=== PATIENT | female | born 1990 | race African-American/Black ===

== ENCOUNTER 2019-08-09 13:37 | Inpatient (IN) | payer OTHER ==
[~2019-08-09] VITALS: Ht 170.2 cm; Wt 97.5 kg
[2019-08-09] MEDS ORDERED: OMEP10CASR PO (13:46)
[2019-08-09] MEDS ORDERED: NS 2,800 ML in IV 1 EA IV ONE (14:15)
[2019-08-09] MEDS ORDERED: ACETAMINOPHEN TAB 650MG DOSE (2X325MG) PO ONE (15:00)
[2019-08-09 15:46] LABS: HEMOGLOBIN 13.6 g/dl (12.0-15.5); MEAN CORPUSCULAR HEMOGLOBIN 26.3 pg (27.0-33.0); MEAN CORPUSCULAR HGB CONC 31.6 g/dl (32.0-36.5); MEAN CORPUSCULAR VOLUME 83.2 fl (80.0-96.0); PLATELET COUNT, AUTOMATED 212 10^3/uL (150-450); RED BLOOD COUNT 5.17 10^6/uL (4.00-5.40); WHITE BLOOD COUNT 13.9 10^3/uL (4.0-10.0)
[2019-08-09 16:02] LABS: EOSINOPHILS 2 % (0-3); LYMPHOCYTES 10 % (16-44); MONOCYTES 4 % (0-5); NEUTROPHILS 80 % (28-66); PLATELET ESTIMATE NORMAL (NORMAL)
[2019-08-09 16:20] LABS: ALBUMIN 3.5 GM/DL (3.2-5.2); ALT/SGPT 676 U/L (12-78); BILIRUBIN,DIRECT 2.8 MG/DL (0.0-0.2); BILIRUBIN,TOTAL 3.7 MG/DL (0.2-1.0); CK-MB VALUE MASS < 1.0 NG/ML (<3.6); CPK CREATINE PHOSPHOKINASE 89 U/L (26-192); LIPASE 124 U/L (73-393); MB/CK RELATIVE INDEX 1.12 (< OR =4); TOTAL PROTEIN 7.5 GM/DL (6.4-8.2)
[2019-08-09] MEDS ORDERED: cefTRIAXone SOD 1 GM in D5W MINI-BAG PLUS 50 ML IV ONE (16:30)
--- NOTE | 2019-08-09 17:31 | REP ---
REASON FOR EXAM: Nausea, vomiting, abdominal pain. Multiple ultrasonographic images of the gallbladder show multiple echogenic foci within the gallbladder lumen which are mobile and cast acoustic shadows. The gallbladder wall is diffusely thickened measuring 5 mm, however, there is no evidence of pericholecystic edema. The common bile duct measures 5 mm in its greatest transverse dimension. Evaluation of the liver shows a few scattered periportal increased echoes. There is no mass or ductal dilatation. The right kidney and imaged portion of the pancreas are within normal limits. IMPRESSION: There is cholelithiasis and gallbladder wall thickening without onofre pericholecystic edema; however, there is a small amount of free fluid in Dockery's pouch. Scattered increased periportal echoes which have been known to be correlated with hepatitis, however, this needs to be correlated clinically with appropriate followup if necessary. Electronically Signed by Shawn Be DO 08/10/2019 09:21 A
[2019-08-09 18:25] LABS: MONO REFLEX EBV COMP NEGATIVE (NEGATIVE)
[2019-08-09] MEDS: NS 1,000 ML IV SCH (20:14)
[2019-08-09] MEDS ORDERED: IBUPROFEN 400 MG TAB PO ONE (20:15)
[2019-08-09] MEDS ORDERED: MULT1TAB16 PO (20:28)
[2019-08-09] MEDS ORDERED: OMEP1CAP73 PO (20:28)
[2019-08-09 21:10] VITALS: BP 121/70
--- NOTE | 2019-08-09 21:12 | HPEPDOC ---
[facility] Medical History & Physical Date of Admission Aug 09, 2019 Date of Service: Aug 09, 2019 Attending Physician: JUAN GRIGSBY MD History and Physical CHIEF COMPLAINT: Abdominal pain, nausea and dark urine HISTORY OF PRESENT ILLNESS: 28-year-old female with past medical history of GERD, presents with abdominal pain. Her symptoms started 1 day ago with associated nausea, change in urine color, and myalgias/arthralgias. She denies any other symptoms, denies recent travel, denies history of alcohol abuse or IV drug use. Her is in the , recently deployed to [place], returned 2 months ago, he has been asymptomatic and healthy since then. Of note, patient has not had a period since March 2019. She saw an DIRECTOR INTERNAL COMMUNICATIONS who told her that it was "normal", no workup has been done. She denies any shortness of breath, chest pain or diarrhea. 10 point review of system is negative except for above PAST MEDICAL HISTORY: 1. GERD. PAST SURGICAL HISTORY: 1. None. SOCIAL HISTORY: Denies smoking. Social alcohol use. Denies drug use FAMILY HISTORY: Negative for heart disease or malignancy ALLERGIES: Please see below. HOME MEDICATIONS: Please see below. PHYSICAL EXAMINATION: VITAL SIGNS: Please see below. GENERAL: No distress HEENT: Normocephalic, atraumatic, moist mucous membranes NECK: Supple CARDIOVASCULAR EXAMINATION: S1, S2, no murmurs RESPIRATORY EXAMINATION: Clear to auscultation, no wheezing ABDOMINAL EXAMINATION: Soft, mild right upper quadrant tenderness to palpation, nondistended, positive bowel sounds EXTREMITIES: Range of motion intact SKIN: No rash NEUROLOGICAL EXAMINATION: Alert and oriented 3, no focal deficits PSYCHIATRIC EXAMINATION: Calm and cooperative LABORATORY DATA: See below. IMAGING: Abdominal ultrasound concerning for hepatitis, showing cholelithiasis with thickening of the bladder wall, no other signs of cholecystitis. MICROBIOLOGY: Please see below. ASSESSMENT: 28-year-old female with past medical history of GERD is being admitted for hepatitis. PLAN: 1. Hepatitis. Appears viral, viral panel pending, IV hydration, will monitor and further workup based on clinical progression. 2. GERD. Continue omeprazole Vital Signs Vital Signs Date Time Temp Pulse Resp B/P (MAP) Pulse Ox O2 Delivery O2 Flow Rate FiO2 08/09/19 19:40 101.3 08/09/19 18:45 101 16 107/58 (74) 98 Room Air Laboratory Data Labs 24H Laboratory Tests 2 08/09/19 14:06: Neutrophils (%) (Auto) , Nucleated Red Blood Cells % (auto) 0.0, Neutrophils 80H, Band Neutrophils 4, Lymphocytes (Manual) 10L, Monocytes (Manual) 4, Eosinophils (Manual) 2, Red Blood Cell Morphology NORMAL, Platelet Estimate NORMAL, Lactic Acid Level 3.1*H, Total Bilirubin 3.7H, Direct Bilirubin 2.8H, Aspartate Amino Transf (AST/SGOT) 372H, Alanine Aminotransferase (ALT/SGPT) 676H, Alkaline Phosphatase 238H, Total Creatine Kinase 89, Creatine Kinase MB < 1.0, Creatine Kinase MB Relative Index 1.12, Total Protein 7.5, Albumin 3.5, Albumin/Globulin Ratio 0.9L, Lipase 124 08/09/19 14:36: POC Glucose (Misc Panel) 105, POC Sodium (Misc Panel) 133L, POC Potassium (Misc Panel) 4.4, POC Chloride (Misc Panel) 96L, POC Total CO2 (Misc Panel) 26.0, POC Blood Urea Nitrogen (Misc Panel 9, POC Ionized Calcium (Misc Panel) 4.3L, POC Creatinine (Misc Panel) 1.2, POC Hematocrit (Misc Panel) 44.0 08/09/19 14:38: POC Beta HCG, Quantitative < 5.0 08/09/19 14:43: Urine Color PHILLIP, Urine Appearance CLOUDYH, Urine pH 6.0, Urine Specific [place] 1.016, Urine Protein 1+H, Urine Glucose (UA) NEGATIVE, Urine Ketones 1+H, Urine Blood NEGATIVE, Urine Nitrite NEGATIVE, Urine Bilirubin 1+H, Urine Urobilinogen 4.0H, Urine Leukocyte Esterase 2+H, Urine WBC (Auto) 141H, Urine RBC (Auto) 7H, Urine Hyaline Casts (Auto) 0, Urine Bacteria (Auto) NEGATIVE, Urine Squamous Epithelial Cells 21, Urine Mucus (Auto) SMALL, Urine Sperm (Auto) 08/09/19 17:46: Lactic Acid Level 1.5, Monoscreen NEGATIVE CBC/BMP Laboratory Tests 08/09/19 14:06 Microbiology Microbiology 08/09/19 Urine Culture, Received Pending 08/09/19 Blood Culture, Received Pending 08/09/19 Blood Culture, Received Pending Home Medications Scheduled Omeprazole (Omeprazole) 10 Mg Capsule.dr, 20 MG PO BID Allergies Uncoded Allergies: an abx that starts with a d (Adverse Reaction, Intermediate, migraine, 08/09/19) A-FIB/CHADSVASC A-FIB History Current/History of A-Fib/PAF?: No JUAN GRIGSBY MD Aug 09, 2019 21:05
[2019-08-09] MEDS ORDERED: EPIP0.3I2 INJ (21:16)
[2019-08-09 22:00] VITALS: BP 118/68
[2019-08-09 22:43] LABS: INR 1.64; PROTHROMBIN TIME 19.2 SECONDS (11.8-14.0)
[2019-08-10] MEDS: NS 1,000 ML IV SCH ×2 (03:58→14:03)
[2019-08-10] MEDS: IBUPROFEN 200MG TAB PO PRN (04:15)
[2019-08-10 06:00] VITALS: BP 123/63
[2019-08-10 06:12] LABS: HEMATOCRIT 34.1 % (36.0-47.0); MEAN CORPUSCULAR HEMOGLOBIN 26.7 pg (27.0-33.0); MEAN CORPUSCULAR HGB CONC 32.8 g/dl (32.0-36.5); MEAN CORPUSCULAR VOLUME 81.4 fl (80.0-96.0); PLATELET COUNT, AUTOMATED 201 10^3/uL (150-450); RED BLOOD COUNT 4.19 10^6/uL (4.00-5.40); WHITE BLOOD COUNT 11.1 10^3/uL (4.0-10.0)
[2019-08-10 06:17] LABS: HEMOGLOBIN 11.2 g/dl (12.0-15.5)
[2019-08-10 06:39] LABS: ALBUMIN 2.6 GM/DL (3.2-5.2); ALT/SGPT 395 U/L (12-78); BILIRUBIN,TOTAL 2.8 MG/DL (0.2-1.0); BLOOD UREA NITROGEN 6 MG/DL (7-18); CALCIUM LEVEL 7.3 MG/DL (8.5-10.1); CARBON DIOXIDE LEVEL 24 MEQ/L (21-32); CHLORIDE LEVEL 107 MEQ/L (98-107); GLOMERULAR FILTRATION RATE > 60.0 (>60); GLUCOSE, FASTING 81 MG/DL (70-100); MAGNESIUM LEVEL 1.2 MG/DL (1.8-2.4); POTASSIUM SERUM 3.6 MEQ/L (3.5-5.1); SODIUM LEVEL 140 MEQ/L (136-145); TOTAL PROTEIN 5.8 GM/DL (6.4-8.2)
[2019-08-10] MEDS: MAG SULF 1GM/100ML (MAG RUN) 1 GM in IV 1 EA IV SCH ×4 (07:48→23:11)
[2019-08-10 09:27] LABS: HEPATITIS A ANTIBODY IGM NEGATIVE (NEGATIVE); HEPATITIS B CORE ANTIBODY IGM NEGATIVE (NEGATIVE); HEPATITIS B SURFACE ANTIGEN NEGATIVE (NEGATIVE); HEPATITIS C VIRUS ABY INDEX 0.3 INDEX (<0.8)
[2019-08-10] MEDS: CHOLESTYRAMINE 4 GM PWD PKT PO SCH ×2 (09:50→21:00)
--- NOTE | 2019-08-10 11:01 | IPNPDOC ---
Subjective Date Seen The patient was seen on 08/10/19. Subjective Chief Complaint/HPI Low-grade fever. Also complaining of itching all over the body and the yellowish discoloration of urine, but no nausea, vomiting or abdominal pain General: Denies: ROS Unobtainable, Chills, Night Sweats, Fatigue, Malaise, N ormal Appetite, Other Symptoms Constitutional: Reports: Fever Eyes: Denies: Pain, Vision change, Conjunctivae inflammation, Eyelid inflammation, Redness, Other ENT: Denies: Head Aches, Ear Pain, Dysphagia, Sinus Congestion, Post Nasal Drip, Sore Throat, Epistaxis, Other Symptoms Skin: Reports: Other (, itching all over the body); Denies: Rash, Lesions, Jaundice, Bruising, Itching, Dry, Breakdown, Nail Changes Pulmonary: Denies: Dyspnea, Cough, Pleuritic Chest Pain, Other Symptoms Cardiovascular: Denies: Chest Pain, Palpitations, Orthopnea, Paroxysmal Noc. Dyspnea, Edema, Lt Headedness, Other Symptoms Gastrointestinal: Denies: Nausea, Vomiting, Abdominal Pain, Diarrhea, Constipation, Melena, Hematochezia, Other Symptoms Genitourinary: Reports: Other Symptoms Hematologic: Denies: Bruising, Bleeding Excessively, Petecchia, Purpura, Enlarged Lymph Nodes, Other Hematologic Endocrine: Denies: Polydipsia, Polyphagia, Polyuria, Heat Intolerance, Cold Intolerance, Other Endocrine Sx Musculoskeletal: Denies: Neck Pain, Back Pain, Shoulder Pain, Arm Pain, Hand Pain, Leg Pain, Foot Pain, Joint Pain, Muscle Pain, Spasms, Other Symptoms Neurological: Denies: Weakness, Numbness, Incoordination, Change in speech, Confusion, Seizures, Other Symptoms Objective Physical Examination General Exam: Positive: Alert, Cooperative Eye Exam: Positive: PERRLA, Conjunctiva & lids normal ENT Exam: Positive: Atraumatic, Mucous membr. moist/pink Neck Exam: Positive: Supple Chest Exam: Positive: Clear to auscultation Heart Exam: Positive: Rate Normal, Normal S1 Abdomen Exam: Positive: Normal bowel sounds, Soft Skin Exam: Positive: Nl turgor and temperature Neuro Exam: Positive: Strength at 5/5 X4 ext, Sensation Intact, Cranial Nerves 3-12 NL Assessment /Plan Problems (1) Elevated liver enzymes Status: Acute Problem Text: Patient was admitted with elevated liver enzymes Total bilirubin 2.8, AST 168, ALT 395, and ALP 160, lipase of 124 Acute hepatitis profile for A, B, and C is negative so far Most likely viral in nature, could be CMV, Flaco-Matias virus, but mono test is negative Will continue IV fluids Monitor patient's liver enzymes and symptoms (2) UTI (urinary tract infection) Status: Acute Problem Text: Patient has been started on Rocephin Urine cultures are pending Will change antibiotics according to the cultures (3) Hypomagnesemia Status: Acute Problem Text: Magnesium sulfate 1 g IV piggyback 2 given . We will repeat a magnesium level in a.m. (4) Gall bladder stones Status: Acute Problem Text: Abdominal sono shows gallstones with gallbladder wall thickness, but no stone in the bile duct Will get a CT of abdomen and pelvis to rule out acute cholecystitis or cholangitis since hepatitis profile is negative Continue supportive care Plan/VTE VTE Prophylaxis Ordered?: Yes VS, I&O, 24H, Fishbone Vital Signs/I&O Vital Signs Date Time Temp Pulse Resp B/P (MAP) Pulse Ox O2 Delivery O2 Flow Rate FiO2 08/10/19 08:54 100.1 08/10/19 06:00 95 17 123/63 (83) 100 Room Air I&O- Last 24 Hours up to 6 AM 08/10/19 05:59 Intake Total 3545 ml Output Total 850 ml Balance 2695 ml Laboratory Data 24H LABS Laboratory Tests 2 08/09/19 14:06: Neutrophils (%) (Auto) , Nucleated Red Blood Cells % (auto) 0.0, Neutrophils 80H, Band Neutrophils 4, Lymphocytes (Manual) 10L, Monocytes (Manual) 4, Eosi nophils (Manual) 2, Red Blood Cell Morphology NORMAL, Platelet Estimate NORMAL, Lactic Acid Level 3.1*H, Total Bilirubin 3.7H, Direct Bilirubin 2.8H, Aspartate Amino Transf (AST/SGOT) 372H, Alanine Aminotransferase (ALT/SGPT) 676H, Alkaline Phosphatase 238H, Total Creatine Kinase 89, Creatine Kinase MB < 1.0, Creatine Kinase MB Relative Index 1.12, Total Protein 7.5, Albumin 3.5, Albumin/Globulin Ratio 0.9L, Lipase 124 08/09/19 14:36: POC Glucose (Misc Panel) 105, POC Sodium (Misc Panel) 133L, POC Potassium (Misc Panel) 4.4, POC Chloride (Misc Panel) 96L, POC Total CO2 (Misc Panel) 26.0, POC Blood Urea Nitrogen (Misc Panel 9, POC Ionized Calcium (Misc Panel) 4.3L, POC Cr eatinine (Misc Panel) 1.2, POC Hematocrit (Misc Panel) 44.0 08/09/19 14:38: POC Beta HCG, Quantitative < 5.0 08/09/19 14:43: Urine Color PHILLIP, Urine Appearance CLOUDYH, Urine pH 6.0, Urine Specific [place] 1.016, Urine Protein 1+H, Urine Glucose (UA) NEGATIVE, Urine Ketones 1+H, Urine Blood NEGATIVE, Urine Nitrite NEGATIVE, Urine Bilirubin 1+H, Urine Urobilinogen 4.0H, Urine Leukocyte Esterase 2+H, Urine WBC (Auto) 141H, Urine RBC (Auto) 7H, Urine Hyaline Casts (Auto) 0, Urine Bacteria (Auto) NEGATIVE, Urine Squamous Epithelial Cells 21, Urine Mucus (Auto) SMALL, Urine Sperm (Auto) 08/09/19 17:46: Lactic Acid Level 1.5, Hepatitis A IgM Antibody NEGATIVE, Hepatitis B Surface Antigen NEGATIVE, Hepatitis B Core IgM Antibody NEGATIVE, Hepatitis C Antibody Index 0.3, Monoscreen NEGATIVE 08/09/19 22:08: Prothrombin Time 19.2H, Prothromb Time International Ratio 1.64, Lactic Acid Followup at 4 Hours 1.6 08/10/19 05:25: Nucleated Red Blood Cells % (auto) 0.0, Anion Gap 9, Glomerular Filtration Rate > 60.0, Calcium Level 7.3L, Magnesium Level 1.2L, Total Bilirubin 2.8H, Aspartate Amino Transf (AST/SGOT) 168H, Alanine Aminotransferase (ALT/SGPT) 395H, Alkaline Phosphatase 160H, Total Protein 5.8#L, Albumin 2.6#L, Albumin/Globulin Ratio 0.8L CBC/BMP Laboratory Tests 08/09/19 14:06 08/10/19 05:25 Microbiology Microbiology 08/09/19 Urine Culture, Received Pending 08/09/19 Blood Culture, Received Pending 08/09/19 Blood Culture, Received Pending AMBROCIO RAMÍREZ MD Aug 10, 2019 11:01
[2019-08-10] MEDS ORDERED: ISOVUE-370 76% 100ML VIAL As Ordered ONE (13:00)
[2019-08-10 14:00] VITALS: BP 122/64
--- NOTE | 2019-08-10 14:42 | REP ---
REASON: Acute abdominal pain. No prior CTs for comparison. CONTRAST: 100 mL Isovue 370. The lung bases are clear. The liver is within normal limits. There are no enhancing lesions. There is no evidence of ductal dilatation. The gallbladder is within normal limits. The spleen, pancreas, adrenal glands, and right kidney are unremarkable. There are two focal areas of low density in the left renal cortex consistent with small simple cysts. The abdominal aorta and para-aortic regions are within normal limits. The intra-abdominal and intrapelvic bowel loops and their mesenteries are within normal limits. There is a moderate to large amount of stool seen in the ascending and transverse colon. No free fluid or free air is seen in the abdomen. There is a small amount of free pelvic fluid probably physiologic. There is no free air in the abdomen or pelvis. The abdominal aorta and para-aortic regions are within normal limits. Bone window technique throughout the examination shows the osseous structures to be within normal limits. IMPRESSION: 1. Small simple left renal cysts. 2. No CT evidence of an hepatic abnormality. 3. Small amount of free fluid in the pelvis, probably physiologic. 4. Colonic content as described above. Correlate clinically for constipation. 5. Other findings and limitations as described above. Electronically Signed by Shawn Be DO 08/10/2019 03:07 P
[2019-08-10] MEDS ORDERED: IBUPROFEN 600MG TAB PO ONE (15:15)
[2019-08-10] MEDS ORDERED: LevoFLOXacin IV 500 MG in IV 1 EA IV SCH (18:00)
[2019-08-10] MEDS ORDERED: POTASSIUM CHLORIDE 10 MEQ SR TABLET PO ONE (20:15)
[2019-08-10] MEDS ORDERED: ONDANSETRON 4 MG TAB PO PRN (20:15)
[2019-08-10 22:00] VITALS: BP 118/65
[2019-08-11] MEDS: MAG SULF 1GM/100ML (MAG RUN) 1 GM in IV 1 EA IV SCH ×2 (00:15→01:58)
[2019-08-11] MEDS: NS 1,000 ML IV SCH ×2 (01:57→04:15)
[2019-08-11 06:00] VITALS: BP 114/60
[2019-08-11 06:16] LABS: HEMATOCRIT 33.9 % (36.0-47.0); HEMOGLOBIN 10.9 g/dl (12.0-15.5); MEAN CORPUSCULAR HEMOGLOBIN 26.2 pg (27.0-33.0); MEAN CORPUSCULAR HGB CONC 32.2 g/dl (32.0-36.5); MEAN CORPUSCULAR VOLUME 81.5 fl (80.0-96.0); PLATELET COUNT, AUTOMATED 219 10^3/uL (150-450); RED BLOOD COUNT 4.16 10^6/uL (4.00-5.40); WHITE BLOOD COUNT 9.6 10^3/uL (4.0-10.0)
[2019-08-11 06:38] LABS: ALBUMIN 2.4 GM/DL (3.2-5.2); ALT/SGPT 315 U/L (12-78); BILIRUBIN,DIRECT 1.3 MG/DL (0.0-0.2); BILIRUBIN,TOTAL 1.7 MG/DL (0.2-1.0); BLOOD UREA NITROGEN 3 MG/DL (7-18); CALCIUM LEVEL 7.7 MG/DL (8.5-10.1); CARBON DIOXIDE LEVEL 25 MEQ/L (21-32); CHLORIDE LEVEL 110 MEQ/L (98-107); CREATININE FOR GFR 0.82 MG/DL (0.55-1.30); GLOMERULAR FILTRATION RATE > 60.0 (>60); GLUCOSE, FASTING 84 MG/DL (70-100); MAGNESIUM LEVEL 2.4 MG/DL (1.8-2.4); SODIUM LEVEL 141 MEQ/L (136-145)
[2019-08-11 07:27] LABS: ATYPICAL LYMPH 1 % (0-5); EOSINOPHILS 1 % (0-3); LYMPHOCYTES 14 % (16-44); MONOCYTES 4 % (0-5); NEUTROPHILS 70 % (28-66)
[2019-08-11 07:28] LABS: PLATELET ESTIMATE NORMAL (NORMAL)
[2019-08-11 07:29] LABS: ANISOCYTOSIS 1+
[2019-08-11] MEDS: CHOLESTYRAMINE 4 GM PWD PKT PO SCH ×2 (08:52→20:41)
[2019-08-11] MEDS: IBUPROFEN 200MG TAB PO PRN (08:53)
[2019-08-11] MEDS: LevoFLOXacin 500 MG TABLET PO SCH (10:14)
[2019-08-11] MEDS ORDERED: MOM 30ML SUSPENSION UDC PO ONE (11:00)
--- NOTE | 2019-08-11 13:05 | IPNPDOC ---
Subjective Date Seen The patient was seen on 08/11/19. Subjective Chief Complaint/HPI Patient is comfortable in no apparent distress. No more nausea, vomiting General: Denies: ROS Unobtainable, Chills, Night Sweats, Fatigue, Malaise, Normal Appetite, Other Symptoms Constitutional: Denies: Chills, Fever, Malaise, Night Sweats, Weakness, Fatigue, Weight Loss, Lethargy, Other Eyes: Denies: Pain, Vision change, Conjunctivae inflammation, Eyelid inflammation, Redness, Other Pulmonary: Denies: Dyspnea, Cough, Pleuritic Chest Pain, Other Symptoms Cardiovascular: Denies: Chest Pain, Palpitations, Orthopnea, Paroxysmal Noc. Dyspnea, Edema, Lt Headedness, Other Symptoms Gastrointestinal: Denies: Nausea, Vomiting, Abdominal Pain, Diarrhea, Constipation, Melena, Hematochezia, Other Symptoms Musculoskeletal: Denies: Neck Pain, Back Pain, Shoulder Pain, Arm Pain, Hand Pain, Leg Pain, Foot Pain, Joint Pain, Muscle Pain, Spasms, Other Symptoms Neurological: Denies: Weakness, Numbness, Incoordination, Change in speech, Confusion, Seizures, Other Symptoms Objective Physical Examination General Exam: Positive: Alert, Cooperative Eye Exam: Positive: PERRLA, Conjunctiva & lids normal ENT Exam: Positive: Atraumatic, Mucous membr. moist/pink Neck Exam: Positive: Supple Chest Exam: Positive: Clear to auscultation Heart Exam: Positive: Rate Normal, Normal S1 Abdomen Exam: Positive: Normal bowel sounds, Soft Skin Exam: Positive: Nl turgor and temperature Neuro Exam: Positive: Strength at 5/5 X4 ext, Sensation Intact, Cranial Nerves 3-12 NL Assessment /Plan Problems (1) Elevated liver enzymes Status: Acute Problem Text: Patient was admitted with elevated liver enzymes Total bilirubin 2.8, AST 168, ALT 395, and ALP 160, lipase of 124 Acute hepatitis profile for A, B, and C is negative so far Most likely viral in nature, could be CMV, Flaco-Matias virus, but mono test is negative CT of the abdomen and pelvis also is negative for any pathology LFTs progressively coming down today. Her total bilirubin is 1.7, AST 117, ALT 313 and ALP 155 Will DC IV fluids and is started regular diet Repeat labs in a.m. if the trend is downwards then she possibly will discharge home (2) UTI (urinary tract infection) Status: Acute Problem Text: Patient urine culture is negative so far pt has been started on by mouth Levaquin after she received 1 dose of IV Levaquin yesterday He is afebrile and seems to be responding to levofloxacin (3) Hypomagnesemia Status: Resolved Problem Text: Resolved (4) Gall bladder stones Status: Acute Problem Text: Abdominal sono shows gallstones with gallbladder wall thickness, but no stone in the bile duct CT abdomen and pelvis is not very impressive Further workup. She can done with her PCP as an outpatient Plan/VTE VTE Prophylaxis Ordered?: Yes VS, I&O, 24H, Fishbone Vital Signs/I&O Vital Signs Date Time Temp Pulse Resp B/P (MAP) Pulse Ox O2 Delivery O2 Flow Rate FiO2 08/11/19 06:00 99.8 101 20 114/60 (78) 99 Room Air I&O- Last 24 Hours up to 6 AM 08/11/19 05:59 Intake Total 4805 ml Output Total 2600 ml Balance 2205 ml Laboratory Data 24H LABS Laboratory Tests 2 08/11/19 05:44: Neutrophils (%) (Auto) , Nucleated Red Blood Cells % (auto) 0.0, Neutrophils 70H, Band Neutrophils 10, Lymphocytes (Manual) 14L, Monocytes (Manual) 4, Eosinophils (Manual) 1, Atypical Lymphocytes 1, Anisocytosis 1+, Platelet Estimate NORMAL, Anion Gap 6L, Glomerular Filtration Rate > 60.0, Calcium Level 7.7L, Magnesium Level 2.4, Total Bilirubin 1.7H, Direct Bilirubin 1.3H, Aspartate Amino Transf (AST/SGOT) 117H, Alanine Aminotransferase (ALT/SGPT) 315H, Alkaline Phosphatase 155H, Total Protein 6.0L, Albumin 2.4L, Albumin/Globulin Ratio 0.7L CBC/BMP Laboratory Tests 08/11/19 05:44 Microbiology Microbiology 08/09/19 Urine Culture - Final, Complete 08/09/19 Blood Culture - Preliminary, Resulted No growth after 24 hours . All specim... 08/09/19 Blood Culture - Preliminary, Resulted No growth after 24 hours . All specim... AMBROCIO RAMÍREZ MD Aug 11, 2019 13:05
[2019-08-11 14:00] VITALS: BP 113/64
[2019-08-11 15:07] LABS: CYTOMEGALOVIRUS IgM ANTIBODY <30.0 AU/mL (0.0-29.9); EBV AB TO NUCLEAR ANTIGEN >600.0 U/mL (0.0-17.9); EBV VIRAL CAPSID AG IgM <36.0 U/mL (0.0-35.9)
[2019-08-11 22:00] VITALS: BP 128/73
[2019-08-12] MEDS: IBUPROFEN 200MG TAB PO PRN (01:50)
[2019-08-12 06:00] VITALS: BP 132/72
[2019-08-12] MEDS: LevoFLOXacin 500 MG TABLET PO SCH (06:07)
[2019-08-12 06:44] LABS: ALBUMIN 2.4 GM/DL (3.2-5.2); ALT/SGPT 220 U/L (12-78); BILIRUBIN,DIRECT 0.5 MG/DL (0.0-0.2); BILIRUBIN,TOTAL 0.7 MG/DL (0.2-1.0); BLOOD UREA NITROGEN 4 MG/DL (7-18); CALCIUM LEVEL 8.1 MG/DL (8.5-10.1); CARBON DIOXIDE LEVEL 26 MEQ/L (21-32); CHLORIDE LEVEL 107 MEQ/L (98-107); CREATININE FOR GFR 0.73 MG/DL (0.55-1.30); GLOMERULAR FILTRATION RATE > 60.0 (>60); GLUCOSE, FASTING 86 MG/DL (70-100); POTASSIUM SERUM 3.4 MEQ/L (3.5-5.1); SODIUM LEVEL 137 MEQ/L (136-145); TOTAL PROTEIN 6.2 GM/DL (6.4-8.2)
[2019-08-12] MEDS: CHOLESTYRAMINE 4 GM PWD PKT PO SCH (08:45)
[2019-08-12] MEDS ORDERED: LEVA1TAB2 PO (09:29)
[2019-08-12] MEDS ORDERED: ADVI200T PO (09:29)
[2019-08-12] MEDS ORDERED: IBUPROFEN 200MG TAB PO ONE (10:00)
--- NOTE | 2019-08-12 12:32 | DS.PDOC ---
Discharge Summary General Date of Admission Aug 09, 2019 at 20:01 Date of Discharge 08/12/19 Discharge Summary PROCEDURES PERFORMED DURING STAY: None. ADMITTING DIAGNOSES: 1. Acute hepatitis. DISCHARGE DIAGNOSES: 1. Elevated liver enzymes, urinary tract infection. COMPLICATIONS/CHIEF COMPLAINT: Acute Hepatitis. HISTORY OF PRESENT ILLNESS: HISTORY OF PRESENT ILLNESS: 28-year-old female with past medical history of GERD, presents with abdominal pain. Her symptoms started 1 day ago with associated nausea, change in urine color, and myalgias/arthralgias. She denies any other symptoms, denies recent travel, denies history of alcohol abuse or IV drug use. Her is in the , [facility], returned 2 months ago, he has been asymptomatic and healthy since then. Of note, patient has not had a period since March 2019. She saw an JUMBO OPERATOR who told her that it was "normal", no workup has been done. She denies any shortness of breath, chest pain or diarrhea.. HOSPITAL COURSE: Patient was admitted with elevated liver enzymes of unknown etiology On admission. Patient was found to have Total bilirubin 2.8, AST 168, ALT 395, and ALP 160, lipase of 124 Acute hepatitis profile for A, B, and C is negative so far Viral etiology was ruled out on the basis of laboratory work CT of the abdomen and pelvis also is negative for any patholog Hepatitis A, B, C antibodies were negative. Also Flaco-Matias and CMV virus IgM antibodies were negative Could be hepatic transfer disease such as Gilbert's disease but workup can be done as an outpatient with her PCP LFTs progressively coming down, her laboratory work today shows AST of 51, ALT 220 and ALP 136 Patient is tolerating oral diet very well She'll be discharged home and can follow with her PCP for further hepatic work in follow-up for have elevated LFTs Urinary tract infection Patient urine culture is negative so far pt has been started on by mouth Levaquin after she received 1 dose of IV Levaquin yesterday He is afebrile and seems to be responding to levofloxacin and was discharged on by mouth Levaquin for 5 more days She was also found to have hypomagnesemia on admission which was corrected by supplementation, . DISCHARGE MEDICATIONS: Please see below. ALLERGIES: Please see below. PHYSICAL EXAMINATION ON DISCHARGE: VITAL SIGNS: Please see below. GENERAL: Within normal limit HEENT: PERRLA. Extraocular muscles intact NECK: Supple. Negative JVD, negative lymphadenopathy CARDIOVASCULAR EXAMINATION: S1, S2, regular RESPIRATORY EXAMINATION: Clear to A&P ABDOMINAL EXAMINATION: Benign EXTREMITIES: No clubbing, cyanosis, edema SKIN: Normal NEUROLOGICAL EXAMINATION: . No focal motor sensory deficit PSYCHIATRIC EXAMINATION: Normal LABORATORY DATA: Please see below. IMAGING: CT abdomen and pelvis:1. Small simple left renal cysts. 2. No CT evidence of an hepatic abnormality. 3. Small amount of free fluid in the pelvis, probably physiologic. 4. Colonic content as described above. Correlate clinically for constipation. 5. Other findings and limitations as described above. PROGNOSIS: Good ACTIVITY: As tolerated. DIET: As tolerated DISCHARGE PLAN: Home DISPOSITION: . Home DISCHARGE INSTRUCTIONS: 1. Follow with PCP in one week. ITEMS TO FOLLOWUP ON ON OUTPATIENT: 1. As above. DISCHARGE CONDITION: Stable. TIME SPENT ON DISCHARGE: 25 minutes. Vital Signs/I&Os Vital Signs Date Time Temp Pulse Resp B/P (MAP) Pulse Ox O2 Delivery O2 Flow Rate FiO2 08/12/19 06:00 99.8 71 18 132/72 (92) 98 Room Air I&O- Last 24 Hours up to 6 AM 08/12/19 06:00 Intake Total 3415 ml Output Total 3050 ml Balance 365 ml Laboratory Data Labs 24H Laboratory Tests 2 08/12/19 05:26: Anion Gap 4L, Glomerular Filtration Rate > 60.0, Calcium Level 8.1L, Total Bilirubin 0.7#, Direct Bilirubin 0.5H, Aspartate Amino Transf (AST/SGOT) 51H, Alanine Aminotransferase (ALT/SGPT) 220H, Alkaline Phosphatase 136H, Total Protein 6.2L, Albumin 2.4L, Albumin/Globulin Ratio 0.6L CBC/BMP Laboratory Tests 08/12/19 05:26 Microbiology Microbiology 08/09/19 Urine Culture - Final, Complete 08/09/19 Blood Culture - Preliminary, Resulted No Growth after 48 hours. All Specime... 08/09/19 Blood Culture - Preliminary, Resulted No Growth after 48 hours. All Specime... Discharge Medications Scheduled Levofloxacin (Levaquin) 500 Mg Tablet, 500 MG PO DAILY@06 Mv-Min/Iron/Folic/Calcium/Vitk (Women's Multivitamin Tablet) 1 Each Tablet, 1 TAB PO DAILY, (Reported) Omeprazole (Omeprazole) 20 Mg Capsule.dr, 20 MG PO DAILY, (Reported) Scheduled PRN Epinephrine (Epipen 2-Yury) 0.3 Mg/0.3 Ml Auto.injct, 0.3 MG INJ PRN PRN for ALLERGIC REACTION, (Reported) Ibuprofen (Advil) 200 Mg Tablet, 200 MG PO Q6HP PRN for PAIN Allergies Coded Allergies: Sulfa (Sulfonamide Antibiotics) (Verified Allergy, Intermediate, Migraines, 08/10/19) docusate (Verified Adverse Reaction, Mild, MIGRAINE, 08/09/19) AMBROCIO RAMÍREZ MD Aug 12, 2019 12:32
== END 2019-08-12 11:57 | disposition home or self-care (01) | DRG 948 ==
LOC: M ED 13:37 → M ED INP 20:01 → ENRESERV 20:41 → M ED 20:58 → M MSPAV 21:10
PROVIDERS: ADMIT Internal Medicine; ATTEND Internal Medicine
DX: R74.8 Abnormal levels of other serum enzymes (principal); N39.0 Urinary tract infection, site not specified; K21.9 Gastro-esophageal reflux disease without esophagitis; Z88.1 Allergy status to other antibiotic agents; Z79.899 Other long term (current) drug therapy; E83.42 Hypomagnesemia; K80.20 Calculus of gallbladder without cholecystitis without obstruction